=== PATIENT | male | born 1945 | race Caucasian/White ===

== ENCOUNTER → 2024-04-08 | Outpatient (CLI) | payer MEDICARE ==
[2024-04-08 13:41] VITALS: BP 155/85; PULSE 68; RESP 16; TEMP 98
--- NOTE | 2024-04-08 14:29 | P.SLEEP ---
History of Present Illness DATE: 04/08/2024 CONSULTATION/NEW PATIENT EVALUATION HISTORY OF PRESENT ILLNESS/SLEEP-WAKE EVALUATION: 78-year-old gentleman had been evaluated in the sleep center for obstructive sleep apnea hypopnea syndrome. Patient has history of obstructive sleep apnea hypopnea syndrome for many years, was on treatment with CPAP. Patient developed some problems with CPAP and did not use it since October 24, 2023. SLEEP SCHEDULE: Usually sleep schedule from 11 PM to 8 AM 7 days a week. FALLING ASLEEP: No problems with falling asleep. DURING SLEEP: Patient snores and wakes up from sleep up to 5 times with 1 episode of nocturia. No history of hypnogogical hallucinations, sleep paralysis, or cataplexy. DURING THE DAY/WAKE STATE: In the morning patient wake up tired, has difficulties to pay attention. [place] sleepiness scale is increased to 13. Usually patient does not take naps. PAST MEDICAL HISTORY: Diabetes mellitus, hypothyroidism. PAST SURGICAL HISTORY: UPPP, tonsillectomy. MEDICATIONS: Please see below. SOCIAL HISTORY: Please see below. FAMILY HISTORY: Heart problems. REVIEW OF SYSTEMS: Snoring, multiple awakenings from sleep, sleepiness during the day. No fevers. No double vision. No recent chest pain. No shortness of breath. No abdominal pain. No bleeding episodes. No blood in urine. No seizure episodes. PHYSICAL EXAMINATION: GENERAL: A pleasant patient without any distress. VITAL SIGNS: Weight is 187 pounds, BMI 28.4. HEENT: PERRLA, EOMI. Evaluation of oropharynx showed tongue protrudes midline, low position of soft palate Mallampati 4. NECK: Supple. No JVD. Thyroid is not palpable. 16 inches in circumference. LUNGS: Clear to percussion and to auscultation. Good air exchange. No wheezing or rhonchi. HEART: S1, S2 regular. No murmurs, gallops or rubs. ABDOMEN: Soft and nontender. Bowel sounds are present. No organomegaly appreciated. EXTREMITIES: No clubbing or cyanosis. DUST BOX TENDER: Awake, alert, and oriented x3. Cranial nerves 2 to 7 intact. There is no fasciculation or atrophy noted. No focal deficits observed. ASSESSMENT: 1. 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 Obstructive sleep apnea hypopnea syndrome. 2. Diabetes mellitus. 3. Hypothyroidism. 4. Status post UPPP. 5 status post tonsillectomy. 6 . Status post bilateral knee replacement. 7. Status post 2 surgeries for right shoulder. PLAN: 1. Home sleep apnea test for evaluation of patient's breathing during sleep at the present time. 2. Following plan after reading sleep study. 3. Preferable position during sleep on the side. 4. No driving if patient feels any sleepiness. Patient is aware of civil and criminal liability for unsafe driving. 5. Sleep hygiene with regular sleep time for at least 7.5-8 hours. 6. Watching weight. Thank you very much for referring this patient for consultation. Sincerely, Navarro Rivera MD, PhD, FAASM. Diplomat of [place] Board of Sleep Medicine, Sleep Medicine Board by [place] Board of Medical Specialities [place] Board of Internal Medicine Screen Cleaner [facility] [place] cc: Livan España MD Past Medical History Past Medical History: Diabetes Mellitus, Hyperlipidemia, Sleep Apnea/CPAP/BIPAP, Thyroid Disorder Additional Past Medical History / Comment(s): on Lisinopril claims does not have Hypertension History of Any Multi-Drug Resistant Organisms: None Reported Past Surgical History: Orthopedic Surgery, Tonsillectomy Additional Past Surgical History / Comment(s): sleep apnea (UPPP) Past Anesthesia/Blood Transfusion Reactions: No Reported Reaction Past Psychological History: No Psychological Hx Reported Smoking Status: Never smoker Past Alcohol Use History: Rare Past Drug Use History: None Reported - Past Family History Father Family Medical History: Coronary Artery Disease (CAD) Son(s) Family Medical History: Coronary Artery Disease (CAD) Additional Family Medical History / Comment(s): at 35 from Sleep Apnea? heart disease Physical Exam Vitals: Vital Signs Temp Pulse Resp BP Pulse Ox 04/08/24 13:40 98 F 68 16 155/85 99 Intake and Output 04/07/24 04/08/24 04/08/24 22:59 06:59 14:59 Other: Weight 84.822 kg Sleep Note - Sleep Data ESS Total: 13 - Sleep Note Sleep Note: Temperature: 98 F Pulse Rate: 68 Respiratory Rate: 16 Blood Pressure: 155/85 SpO2: 99 Height: 5 ft 8 in Weight: 84.822 kg BMI: Neck Circumference: 16
== END ==
LOC: 3 N SLEEP 13:10
PROVIDERS: ATTEND Internal Medicine
CPT/HCPCS: 99202

== ENCOUNTER → 2024-04-21 | Outpatient (CLI) | payer MEDICARE ==
--- NOTE | 2024-04-23 13:27 | P.PCN ---
Description of Procedure: CLINICAL: A home sleep apnea test has been done for confirmation of possible obstructive sleep apnea-hypopnea syndrome. DESCRIPTION OF PROCEDURE: RESULTS: Recording time was 6 hours 44 minutes. Evaluation time was 6 hours 28 minutes. Evaluation time is sufficient for making conclusion about results of the test. Raw data of sleep recording has been reviewed and is adequate. Respiratory channel showed 37 apneas and 61 hypopneas. Apnea-hypopnea index was 15.1 per hour. Pulse rate in the range between minimum 53, maximum 98, average 69 by computer calculation. Lowest desaturation was 87%. IMPRESSION: 1. Moderate Obstructive Sleep Apnea Hypopnea Syndrome. Please see other impressions from consultation. PLAN: 1. The patient should have PAP titration for correction of respiratory abnormallities during sleep. 2. I will see patient for follow up visit to discuss results of the test, evaluate clinical response on treatment with PAP therapy and make any necessary adjustments related to mask fitting, pressure, and humidification. 3. Watching weight. 4. Sleep hygiene with regular time in bed for at least 8 hours. 5. No driving if feeling any sleepiness. Thank you very much for allowing me to participate in the management of your patient. Sincerely, Navarro Rivera MD, PhD, FAASM Diplomat of [place] [employer] Specialties Sleep Medicine Board of [place] Board of Internal Medicine [employer] Starter [facility] [place] cc: Livan España MD
== END ==
LOC: 3 N SLEEP 10:52
PROVIDERS: ATTEND Internal Medicine
DX: G47.33 Obstructive sleep apnea (adult) (pediatric) (principal); E11.9 Type 2 diabetes mellitus without complications; E03.9 Hypothyroidism, unspecified; Z98.890 Other specified postprocedural states; Z90.89 Acquired absence of other organs; Z96.653 Presence of artificial knee joint, bilateral

== ENCOUNTER → 2024-04-21 | Outpatient (CLI) | payer MEDICARE | END | disposition home or self-care (01) | LOC: LABWHC1 11:47 | PROVIDERS: ATTEND Orthopaedic Surgery | DX: Z53.9 Procedure and treatment not carried out, unspecified reason (principal) ==

== ENCOUNTER 2024-04-26 19:35 | Outpatient (CLI) | payer MEDICARE ==
--- NOTE | 2024-04-29 09:50 | P.PCN ---
Description of Procedure: CLINICAL: Titration with positive air pressure has been done for correction of respiratory abnormalities during sleep. DESCRIPTION OF PROCEDURE: The standard montage for clinical polysomnography included the electroencephalogram, the electrocardiogram, the mentalis surface electromyography and Lead II cardiography. The respiratory battery consisted of measurements of nasal /buccal air flow, pressure transducer measurements from the nose, thoracic and /or abdominal effort and intercostal surface electromyography. Video monitoring has been done to check for any parasomnia events. Nocturnal oxyhemoglobin saturations were obtained by finger oximetry. Step-bundy titration with positive airway pressure was utilized to control respiratory events. Raw data of sleep recording has been reviewed and is adequate. RESULTS: Sleep efficiency was decreased to 77.2%. Latency to sleep onset was normal at 10.0 minutes.]. Sleep architecture showed stage N1 was significantly increased to 23.7%, Delta sleep was short 1.6%, REM sleep was short 4.7%. Heart rate was minimum 58 BPM, maximum 71 BPM, average 65 BPM. EMG showed 116.2 periodic limb movements per hour with 1.7 micriarousals per hour. PAP titration have been done with CPAP up to the pressure 7 cm H2O. The best results were at the pressure 7 cm H2O. Apnea hypopnea index reduced to 1.5. IMPRESSION: 1. Obstructive sleep apnea hypopnea syndrome on controle with PAP treatment. 2. Severe periodic limb movements have been documented. Please see other impressions from consultation. PLAN: 1. The patient will have treatment with positive air pressure equipment with the level of pressure AutoPAP 4-9 cm H2O and should use it every night for the whole night. 2. Watching weight. 3. Sleep hygiene with regular time in bed for at least 8 hours. 4. No driving if feeling any sleepiness. 5. I will see the patient for follow up visit to explain the results of the test, recommendations, check compliance with treatment and make any necessary adjustment related to mask fitting, pressure and humidification. 6. Please check iron profile including ferritin level. Low level of iron may increase risk for periodic limb movements Thank you very much for allowing me to participate in the management of your patient. Sincerely, Navarro Rivera MD, PhD, FAASM Diplomat of [place] [employer] Sleep Medicine Board of [place] [employer] of Internal Medicine Generator Worker [facility] [place] cc: Livan España MD
== END 2024-04-27 05:36 | disposition home or self-care (01) ==
LOC: 3 N SLEEP 19:35
PROVIDERS: ATTEND Internal Medicine
DX: G47.33 Obstructive sleep apnea (adult) (pediatric) (principal); G47.61 Periodic limb movement disorder; G47.10 Hypersomnia, unspecified
CPT/HCPCS: 95811

== ENCOUNTER → 2024-06-04 | Outpatient (CLI) | payer MEDICARE ==
[2024-06-04 16:32] VITALS: BP 123/67; PULSE 76; RESP 18; TEMP 98
--- NOTE | 2024-06-04 17:31 | P.PROGSL ---
Subjective DATE: 06/04/2024 FOLLOW UP VISIT. Patient with obstructive sleep apnea hypopnea syndrome return to sleep center for follow-up visit. Recently patient had sleep study which documented obstructive sleep apnea hypopnea syndrome. Patient was initiated on PAP therapy and today is first visit after treatment was started. Patient was able to use PAP equipment every night for the whole night, but he has problems related to connection of humidifier box with the machine, there is a leak from that area. [place] sleepiness scale is increased to 13. I checked information from PAP unit. PAP unit pressure 5-10, average 9.8 cm H2O. Usage is 93% and 70% for more then 4 hours, average 5.5 hours per night. Leak is increased to 28.2 l/m. Apnea Hypopnea Index is 3.6, which is normal. During physical exam: GENERAL: A pleasant patient without any distress. VITAL SIGNS: Please see below, weight 184.6 pounds HEENT: PERRLA, EOMI.low position of soft palate, Mallapati 4 . NECK: Supple. No JVD. LUNGS: Clear to percussion and to auscultation. Good air exchange. No wheezing or rhonchi. HEART: S1, S2 regular. ABDOMEN: Soft and nontender.[] EXTREMITIES: No clubbing or cyanosis. INSPECTOR TOOL: Awake, alert, and oriented x3. No focal deficit. Impressions: 1. Obstructive sleep apnea-hypopnea syndrome. Patient demonstrated good compliance with treatment, benefiting from treatment. CPAP unit has some problems related with connection of humidifier box with CPAP unit. 2. Diabetes mellitus. 3. Hypothyroidism. 4. Status post UPPP. 5. Status post tonsillectomy. 6. Status post bilateral knee replacement. 7. Status post 2 surgeries for right shoulder. Plan: 1. Continue using PAP equipment every night for the whole night. Prescription to fix or replace CPAP unit. I slightly increased range of the pressure to 5-11 cm of water. 2. To change air filter at least 1-2 times per month. 3. PAP unit should stay lower then position of the head. 4. Advised patient to remove all remaining water from humidifier canister daily and make it dry after each usage. Refill canister with fresh distilled water before each usage. 5. Sleep hygiene with regular time in bed for at least 8 hours. 6. Precautions related to driving. No driving if feel any sleepiness. 7. I will maintain prescription for PAP supplies including mask, tube, filters. 8. Follow up visit in 3 months or earlier if patient has any problems. 9. Watching weight. Thank you very much for allowing me to participate in the management of your patient. Navarro Rivera MD, PhD, FAASM. Diplomat of [place] [employer] of Sleep Medicine, Sleep Medicine Board by [place] [employer] Medicine Disintegrator Operator of [facility] [place] Objective - Vital Signs Vital Signs: Vital Signs Temp 98.0 F 06/04/24 16:33 Pulse 76 06/04/24 16:33 Resp 18 06/04/24 16:33 BP 123/67 06/04/24 16:33 Pulse Ox 99 06/04/24 16:33 FiO2 Intake & Output 06/03/24 06/04/24 06/04/24 18:59 06:59 18:59 Weight 83.631 kg
== END ==
LOC: 3 N SLEEP 16:08
PROVIDERS: ATTEND Internal Medicine
DX: G47.33 Obstructive sleep apnea (adult) (pediatric) (principal); E11.9 Type 2 diabetes mellitus without complications; E03.9 Hypothyroidism, unspecified; Z98.890 Other specified postprocedural states; Z90.89 Acquired absence of other organs; Z99.89 Dependence on other enabling machines and devices; Z96.653 Presence of artificial knee joint, bilateral
CPT/HCPCS: 99212